=== PATIENT | male | born 1970 | race Caucasian/White ===

== ENCOUNTER 2017-06-03 13:41 | Emergency (ER) | payer BC ==
[2017-06-03 14:27] VITALS: BP 120/67
--- NOTE | 2017-06-03 14:34 | UC ---
Skin Complaint HPI - HPI Summary HPI Summary: Pt presents with c/o round, red rash on the back of left lower posterior leg that began 3 days ago. - History of Current Complaint Chief Complaint: UCSkin Time Seen by Provider: 06/03/17 14:13 Stated Complaint: LEFT LEG SKIN COMPLAINT Hx Obtained From: Patient Onset/Duration: Sudden Onset, Lasting Days Skin Exposure Onset/Duration: Days Ago Timing: Constant Onset Severity: Mild Current Severity: Mild Location: Discrete - left posterior calf Character: Redness Aggravating Factor(s): Nothing Alleviating Factor(s): Unknown Associated Signs & Symptoms: Positive: Rash - Allergy/Home Medications Allergies/Adverse Reactions: Allergies Allergy/AdvReac Type Severity Reaction Status Date / Time Rivaroxaban [From Xarelto] Allergy Severe Swelling Verified 06/03/17 14:05 Home Medications: Home Medications Aspirin EC Low Dose* [Ecotrin EC Low Dose 81 MG*] 1 tab BEDTIME 06/03/17 [ History Confirmed 06/03/17] Dorzolamide 2% OPTH (NF) [Trusopt 2% OPTH (NF)] 1 drop BOTH EYES BID 06/03/17 [ History Confirmed 06/03/17] Losartan TAB* [Cozaar TAB*] 25 mg PO DAILY 06/03/17 [History Confirmed 06/03/17] Review of Systems Constitutional: Negative Skin: Rash Eyes: Negative ENT: Negative Respiratory: Negative Cardiovascular: Negative Gastrointestinal: Negative Genitourinary: Negative Motor: Negative Neurovascular: Negative Musculoskeletal: Negative Neurological: Negative Psychological: Negative Is Patient Immunocompromised?: No All Other Systems Reviewed And Are Negative: Yes PMH/Surg Hx/FS Hx/Imm Hx Previously Healthy: Yes - charcot tooth pawel, left foot - Surgical History Surgical History: Yes Surgery Procedure, Year, and Place: MASTOIDECTOMY RT EAR X 2MIDDLE EAR LT X3 - Family History Known Family History: Positive: Cardiac Disease - Social History Occupation: Employed Full-time Lives: With Family Alcohol Use: Occasionally Substance Use Type: Excessive Caffeine Smoking Status (MU): Never Smoked Tobacco Have You Smoked in the Last Year: No - Immunization History Most Recent Influenza Vaccination: NOT YET 2016 Physical Exam Triage Information Reviewed: Yes Appearance: Well-Appearing Vital Signs: Initial Vital Signs Temp 97.5 F 06/03/17 14:12 Pulse 65 06/03/17 14:12 Resp 18 06/03/17 14:12 BP 120/67 06/03/17 14:12 Pulse Ox 96 06/03/17 14:12 Vital Signs Reviewed: Yes Eye Exam: Normal ENT Exam: Normal Neck exam: Normal Respiratory Exam: Normal Musculoskeletal Exam: Normal Neurological Exam: Normal Psychological Exam: Normal Skin Exam: Other - round, red rash, with flaky, dry skin in center. Course/Dx - Differential Diagnoses - Skin Complaint Differential Diagnoses: Allergic Reaction, Tinea - Diagnoses Provider Diagnoses: tinea, ringworm left lower extremity Discharge - Discharge Plan Condition: Stable Disposition: HOME Prescriptions: Terbinafine HCl (Topical) [Antifungal Foot] 1 % EX Q12H #1 tube Patient Education Materials: Skin Yeast Infection (ED) Referrals: Lonny Ward MD [Primary Care Provider] - If Needed
== END 2017-06-03 14:50 | disposition home or self-care (01) ==
LOC: UCCORT 13:41
DX: B35.4 Tinea corporis (principal)
CPT/HCPCS: 99212; G0463

== ENCOUNTER 2017-09-13 16:02 | Emergency (ER) | payer BC ==
--- OUTSIDE RECORDS SUMMARY | 2017-09-13 16:49 | XMS REPORT ---
:1970 External Reference #:[id number] Author Organization [employer] Address [address] [place] [address] Phone [phone] Care Team Providers Name Role Phone Lonny Ward MD Care Team Information Animal Trainer Unavailable Lonny Ward MD Primary Care Physician Unavailable Payers Type Date Identification Numbers Payment Provider Subscriber Commercial Policy Number: [id number] LAURENCE Anay Castro PayID: [id number] [address] [address] [place] [address] Problems Date Description Provider Status Onset: 11/28/2008 Type 2 diabetes mellitus Ethan Greco M.D. Active Family History Date Family Member(s) Problem(s) Comments General Diabetes Social History Type Date Description Comments Occupation Clergy Cigarette Use Never Smoked Cigarettes ETOH Use Drinks Alcoholic Beverages Rarely Recreational Drug Use Never Used Drugs Allergies, Adverse Reactions, Alerts Date Description Reaction Status Severity Comments 04/07/2017 Rivaroxaban EDEMA active 11/28/2008 NKDA inactive Medications Medication Date Status Form Strength Qnty SIG Indications Ordering Provider Fluticasone 03/13/ Active Suspension 50mcg/Act 3units 2 sprays Millicent Greco 2010 both helen Long M.D. every day 30 Days Aspirin 00/00/ Active Tablets 81mg Daily Unknown 0000 Insulin Pump / Active U500 Unknown 0000 Losartan 0000/ Active Tablets 25mg 1 by mouth Unknown Potassium 0000 every day Atorvastatin 00/00/ Active Tablets 20mg 1 by mouth Unknown Calcium 0000 every day Gabapentin 0000/ Active Capsules 300mg 1 by mouth Unknown 0000 three times a day Vitamin E / Active Capsules 400Unit everyday Unknown 0000 Multivitamin 00/ Active Tablets Adlt 50+ Daily Unknown Adults 50+ 0000 Vitamin B 00// Active Tablets Unknown Complex 0000 Tylenol Extra / Active Tablets 500mg 2 tabs bid Unknown Strength 0000 Lumigan / Active Unknown 0000 Tramadol HCL / Active Tablets 50mg Unknown 0000 Orfadin / Active Capsules Unknown 0000 Tumeric 00/ Active Daily Unknown 0000 Augmentin 08/12/ Hx Tablets 875-125mg 14tabs twice a Angus, 2016 - day 1 week Ethan, 08/25/ M.D. 2016 Ciprodex 04/07/ Hx Suspension 0.3-0.1% 15ml 3-4 gtts Angus, 2016 - bid in [facility], 08/11/ affected M.D. 2016 ear x 1 wk rebate: rxbin: [id number], rxpcn: loyalty, rxgrp: [id number], dish stacker: ([id number]), id# [id number] Amoxicillin 04/07/ Hx Tablets 875mg 20tabs 1 by mouth Angus, 2016 - twice a Ethan, 04/13/ day for 10 M.D. 2017 days Ciprodex 11/21/ Hx Suspension 0.3-0.1% 1bottl 5 drops Angus, 2015 - e twice a Ethan, 04/06/ day x 10 M.D. 2017 days left ear Cefdinir 10/16/ Hx Capsules 300mg 20caps 1 by mouth Angus, 2015 - twice a Ethan, 04/06/ day for 10 M.D. 2017 days Ciprodex 08/19/ Hx Suspension 0.3-0.1% 1units 3-4 gtts Angus, 2014 - bid in [facility], 10/07/ affected M.D. 2015 ear x 1 wk rebate: rxbin: [id number], rxpcn: loyalty, rxgrp: [id number], dish stacker: ([id number]), id# [id number] Augmentin 14/ Hx Tablets 875-125mg 20tabs 1 by mouth Angus, 2014 - twice a Ethan, 10/07/ day for 10 M.D. 2016 days Ciprodex 02/20/ Hx Suspension 0.3-0.1% 7.5ml 3-4 gtts Angus 2014 - bid in [facility], 08/06/ affected M.D. 2014 ear x 1 wk Amoxicillin 02/20/ Hx Tablets 875mg 14tabs bid 1 week Angus 2014 - [facility], 02/20/ M.D. 2014 Amoxicillin 02/20/ Hx Tablets 875mg 14tabs twice a Angus 2014 - day 1 week [facility], 08/06/ M.D. 2014 Prednisone 02/20/ Hx Tablets 10mg 2tabs 1 by mouth Angus 2014 - every [facility], 08/06/ morning M.D. 2014 Prednisone 05/16/ Hx Tablets 20mg 7tabs 1 po qd x Angus, 2011 - 7 days [facility], 10/21/ M.D. 2012 Nasonex 03/10/ Hx Suspension 50mcg/Act 17GMbo 2 sprays Angus, 2010 - ttl each [facility], 03/13/ nostril M.D. 2010 daily Ciprodex 02/18/ Hx Suspension 0.3-0.1% 7.5ml 3-4 gtts Angus 2010 - bid in [facility], 05/16/ affected M.D. 2011 ear x 1 wk Amoxicillin 12/31/ Hx Tablets 875mg 14tabs bid 1 week Angus 2010 - [facility], 02/18/ M.D. 2010 Ciprodex 02/13/ Hx Suspension 0.3-0.1% 1Bottl 2 drops in Angus, 2008 - e right ear [facility], 3 times a M.D. 2008 day for 5 days See Med List 00/00/ Hx Unknown 2008 Amaryl 00/ Hx Unknown 2008 Metformin / Hx 1000 mg Unknown - 08/06/ 500 mg at 2014 night Actos /00/ Hx Tablets 15mg Qday Unknown 2010 Lisinopril 00/ Hx Tablets 30mg Unknown 2011 Xalatan / Hx Solution 0.005% Unknown 2011 Fluticasone 00/ Hx Unknown 2008 Lantus / Hx 20 U qd Unknown 2008 Diovan HCT / Hx Tablets 320/25mg Unknown 2011 Sertraline 00/ Hx 75MGM Unknown - 2011 Humalog / Hx Solution 100Unit/ML Vis Unknown 0000 - Insulin 2012 Losartan 0000/ Hx Tablets 100-25mg Unknown Potassium/Hydr - ochlorothiazid 2012 Crestor 00/ Hx Tablets 10mg daily Unknown 2012 Timolol / Hx GFS Unknown Maleate - Ophthalmic Gel 2012 Lumigan / Hx Solution Unknown 2012 Actos / Hx 30mg 1 PO qd Unknown - 2014 Lisinopril / Hx Tablets 20mg 30tabs 1 by mouth Unknown 0000 - every day 2016 Vital Signs Date Vital Result Comment 08/26/2017 Weight 298.00 lb Height 72 inches 6'0" BMI (Body Mass Index) 40.4 kg/m2 Heart Rate 89 /min O2 % BldC Oximetry 90 % Body Temperature 97.1 F Pain Level 0 08/12/2017 Weight 298.00 lb Height 72 inches 6'0" BMI (Body Mass Index) 40.4 kg/m2 BP Systolic 136 mmHg BP Diastolic 77 mmHg Heart Rate 71 /min O2 % BldC Oximetry 96 % Body Temperature 97.7 F Pain Level 0 04/14/2017 Weight 301.00 lb Height 72 inches 6'0" BMI (Body Mass Index) 40.8 kg/m2 BP Systolic 109 mmHg BP Diastolic 74 mmHg Heart Rate 70 /min O2 % BldC Oximetry 94 % Body Temperature 98.7 F Pain Level 0 04/07/2017 Weight 300.00 lb Height 72 inches 6'0" BMI (Body Mass Index) 40.7 kg/m2 BP Systolic 126 mmHg BP Diastolic 86 mmHg Heart Rate 77 /min O2 % BldC Oximetry 94 % Body Temperature 98.7 F 11/22/2015 Weight 300.00 lb Height 72 inches 6'0" BMI (Body Mass Index) 40.7 kg/m2 Body Temperature 97.4 F 10/16/2015 Weight 306.00 lb Height 72 inches 6'0" BMI (Body Mass Index) 41.5 kg/m2 BP Systolic 124 mmHg BP Diastolic 84 mmHg Heart Rate 77 /min O2 % BldC Oximetry 96 % Body Temperature 96.7 F [place] Score 5 08/19/2015 Weight 301.00 lb Height 72 inches 6'0" BMI (Body Mass Index) 40.8 kg/m2 BP Systolic 132 mmHg BP Diastolic 80 mmHg Heart Rate 85 /min O2 % BldC Oximetry 96 % Body Temperature 96.3 F 02/20/2015 Weight 290.00 lb BP Systolic 150 mmHg BP Diastolic 98 mmHg Body Temperature 98.2 F 09/25/2014 Weight 291.00 lb Heart Rate 96 /min O2 % BldC Oximetry 97 % Body Temperature 97.0 F 12/12/2012 Weight 296.00 lb Height 72 inches 6'0" BMI (Body Mass Index) 40.1 kg/m2 BP Systolic 126 mmHg BP Diastolic 90 mmHg Body Temperature 97.7 F 10/21/2012 Weight 295.00 lb Height 72 inches 6'0" BMI (Body Mass Index) 40.0 kg/m2 BP Systolic 126 mmHg BP Diastolic 88 mmHg Heart Rate 80 /min O2 % BldC Oximetry 95 % Body Temperature 97.3 F 05/16/2012 Weight 295.00 lb Height 72 inches 6'0" BMI (Body Mass Index) 40.0 kg/m2 BP Systolic 124 mmHg BP Diastolic 84 mmHg Heart Rate 93 /min O2 % BldC Oximetry 95 % Body Temperature 98.4 F 03/10/2011 Weight 298.00 lb Height 72 inches 6'0" BMI (Body Mass Index) 40.4 kg/m2 BP Systolic 130 mmHg BP Diastolic 90 mmHg Heart Rate 81 /min O2 % BldC Oximetry 93 % Body Temperature 95.8 F 02/18/2011 Weight 293.00 lb Height 72 inches 6'0" BMI (Body Mass Index) 39.7 kg/m2 BP Systolic 138 mmHg BP Diastolic 82 mmHg Heart Rate 78 /min O2 % BldC Oximetry 96 % Body Temperature 96.4 F 12/31/2010 Weight 293.00 lb Height 72 inches 6'0" BMI (Body Mass Index) 39.7 kg/m2 BP Systolic 138 mmHg BP Diastolic 86 mmHg Heart Rate 87 /min O2 % BldC Oximetry 96 % Body Temperature 98.4 F neck 20 inch 11/20/2009 Weight 281.00 lb Height 72 inches 6'0" BMI (Body Mass Index) 38.1 kg/m2 BP Systolic 110 mmHg BP Diastolic 64 mmHg Heart Rate 77 /min O2 % BldC Oximetry 95 % Body Temperature 98.1 F 18.25 inch neck 04/19/2009 Weight 275.25 lb Height 72 inches 6'0" BMI (Body Mass Index) 37.3 kg/m2 BP Systolic 128 mmHg BP Diastolic 77 mmHg Heart Rate 85 /min O2 % BldC Oximetry 97 % 11/28/2008 Weight 263.00 lb Height 72 inches 6'0" BMI (Body Mass Index) 35.7 kg/m2 Body Temperature 98.1 F Results Test Date Test Result H/L Range Note Laboratory test finding 02/18/2011 Ear Culture See Note 1 1 Organism 1 ! NO PATHOGENS ISOLATED Procedures Date CPT Code Description Status 08/12/2017 28838 Debridement Mastoidectomy Cavity, Simple Completed 10/16/2015 99843 Tympanometry Completed 10/16/2015 66054 Tympanometry Completed 08/10/2009 86978 Sleep Stage 4 Or More Cpap Titra Completed 07/01/2009 09240 Sleep Staging 4Or More Para Completed 04/19/2009 92525 Fiberoptic Laryngoscopy,Diag. Completed 01/17/2009 06951 Acoustic Reflex Testing Completed 01/17/2009 19183 Tympanometry Completed 01/17/2009 81641 Audiometry, Comprehensive Completed Encounters Type Date Location Provider CPT E/M Dx Office Visit 08/12/2017 8:45a Main Office Ethan Greco M.D. 59410 H70.891 H66.92 Office Visit 04/14/2017 8:30a [place] [address] H60.92 H65.02 Office Visit 04/07/2017 1:30p [place] [address] H60.92 Office Visit 11/22/2015 8:00a Main Office Ethan Greco M.D. 07890 H70.891 H60.92 G47.33 E66.9 Office Visit 10/16/2015 8:30a [place] [address] H65.22 Office Visit 08/19/2015 8:30a [place] [address] H65.22 H61.21 Office Visit 02/20/2015 5:15p Main Office Ethan Greco M.D. 06695 383.89 381.81 327.23 382.9 380.10 Office Visit 09/25/2014 8:00a Main Office Vinita Valadez [place], [place] [address] 327.23 381.81 383.89 Office Visit 12/12/2012 8:30a [place] [address] 381.81 327.23 Office Visit 10/21/2012 8:15a [place] [address] 381.81 Office Visit 05/16/2012 9:00a [place] [address] 381.81 Office Visit 03/10/2011 8:15a [place] [address] 381.10 Office Visit 02/18/2011 9:00a [place] [address] 381.10 Office Visit 12/31/2010 11:15a Main Office Mihaela [place], [place] [address] 327.23 381.10 Office Visit 11/20/2009 11:15a [place] [address] 327.23 Office Visit 07/22/2009 2:00p Main Office Ethan Greco M.D. 30614 327.23 780.53 470 Office Visit 05/20/2009 8:30a Main Office Ethan Greco M.D. 47149 383.89 780.53 327.23 470 Office Visit 04/19/2009 11:15a Main Office Ethan Greco M.D. 95408 780.53 327.23 470 383.89 389.03 Office Visit 02/13/2009 2:45p Main Office Ethan Greco M.D. 59352 383.89 389.03 Office Visit 11/28/2008 2:30p Main Office Ethan Greco M.D. 95039 383.89 389.03 Plan of Care No Information Available
[2017-09-13 16:58] VITALS: BP 120/75
--- NOTE | 2017-09-13 16:59 | UC ---
Respiratory Complaint HPI - History of Current Complaint Chief Complaint: UCGeneralIllness Stated Complaint: UPPER RESPIRATORY COMPLAINT Time Seen by Provider: 09/13/17 16:59 - Allergies/Home Medications Allergies/Adverse Reactions: Allergies Allergy/AdvReac Type Severity Reaction Status Date / Time Rivaroxaban [From Xarelto] Allergy Severe Swelling Verified 09/13/17 16:58 Latex Allergy Rash Verified 09/13/17 16:58 PMH/Surg Hx/FS Hx/Imm Hx - Surgical History Surgical History: Yes Surgery Procedure, Year, and Place: MASTOIDECTOMY RT EAR X 2 MIDDLE EAR LT X3 - Family History Known Family History: Positive: Cardiac Disease - Social History Alcohol Use: Rare Substance Use Type: Excessive Caffeine Smoking Status (MU): Never Smoked Tobacco Have You Smoked in the Last Year: No - Immunization History Most Recent Influenza Vaccination: FALL 2016 Physical Exam Vital Signs: Initial Vital Signs Temp 36.4 C 09/13/17 16:49 Pulse 80 09/13/17 16:49 Resp 16 09/13/17 16:49 BP 120/75 09/13/17 16:49 Pulse Ox 96 09/13/17 16:49 UC Diagnostic Evaluation - Laboratory O2 Sat by Pulse Oximetry: 96 Discharge - Discharge Plan Condition: Stable Disposition: HOME Referrals: Lonny Ward MD [Primary Care Provider] -
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
== END 2017-09-13 17:52 | disposition home or self-care (01) ==
LOC: UCCORT 16:02
DX: H66.93 Otitis media, unspecified, bilateral (principal); J01.90 Acute sinusitis, unspecified; E11.9 Type 2 diabetes mellitus without complications; E78.5 Hyperlipidemia, unspecified; I10 Essential (primary) hypertension
CPT/HCPCS: 99212; G0463

== ENCOUNTER 2019-10-26 16:39 | Emergency (ER) | payer BC ==
--- OUTSIDE RECORDS SUMMARY | 2019-10-26 18:16 | XMS REPORT | Summary of Care ---
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 without macular edema, with long-term current use of insulin; [address] NETO on CPAP; [place], [place] Diabetic nephropathy associated with type 2 diabetes mellitus; [place] [address] Essential hypertension; [id number] Mixed hyperlipidemia; [phone] Insulin long-term use; (Fax) Insulin pump status; Morbid obesity with BMI of 40.0-44.9, adult; Charcot's joint of foot in type 2 diabetes mellitus; Low testosterone; Vitamin D deficiency; Type 2 diabetes mellitus with peripheral neuropathy Allergies Active Allergy Reactions Severity Noted Date Comments Latex Other (See Comments) 07/11/2015 Possible reaction: had rash and infection following blood donation, took a week to resolve. Has donated before with out incident. Rivaroxaban Rash, Other (See High 10/13/2013 Severe edema Comments) documented as of this encounter (statuses as of 10/25/2019) Medications Medication Sig Dispensed Refills Start Date End Date Status citalopram Take 30 mg by 0 08/14/2013 Active (CELEXA) 20 MG mouth daily tablet gabapentin Take 300 mg by 0 05/16/2015 Active (NEURONTIN) 300 MG mouth Three times capsule daily. atenolol Take 50 mg by 0 Active (TENORMIN) 50 MG mouth daily. tablet fluticasone 2 sprays each 0 Active (FLONASE) 50 nostril once MCG/ACT nasal daily. spray acetaminophen Take 1,000 mg by 0 Active (TYLENOL) 500 MG mouth daily as tablet needed for Pain Insulin Use as directed. 10 each 10/21/2015 Active Syringe-Needle Up to 5 times U-100 (INSULIN daily in case of SYRINGE pump failure. .5CC/31GX5/16") DXE11.65 31G X 5/16" 0.5 ML MISC atorvastatin Take 20 mg by 0 Active (LIPITOR) 20 MG mouth daily. tablet vitamin E 400 UNIT Take 400 Units by 0 Active capsule mouth daily tramadol (ULTRAM) Take by mouth 0 01/07/2016 Active 50 MG tablet nightly Per pt- once a day at night losartan (COZAAR) Take 100 mg by 0 Active 100 MG tablet mouth daily. calcium carbonate Chew 1 tablet by 0 Active (TUMS EX) 750 MG Mouth daily as chewable tablet needed acetone, urine, Use as directed up 25 each 12/08/2016 Active test strip to 10 x daily for hyperglycemia or illness. terbinafine Apply topically 0 Active (LAMISIL) 1 % Two times daily as cream needed to spots on legs. SUPER B COMPLEX/C Take 1 capsule by 0 Active CAPS mouth daily stopped orphenadrine Take 50 mg by 0 Active (NORFLEX) 100 MG mouth nightly tablet Multiple Take 1 tablet by 0 Active Vitamins-Minerals mouth daily (CENTRUM SILVER ADULT 50+) TABS glucagon (GLUCAGON Use as directed 1 each 10/05/2017 Active EMERGENCY) 1 MG for hypoglycemia injection Insulin Infusion Use as directed. 0 Active Pump Supplies (MINIMED PUMP RESERVOIR 3ML) MISC Blood Glucose by Does not apply 0 Active Monitoring Suppl route (CONTOUR NEXT LINK) w/Device KIT CONTOUR NEXT TEST 0 08/02/2018 Active test strip dorzolamide-timolo Place 1 drop into 10 mL 12/29/2018 Active l (COSOPT) both eyes Two 22.3-6.8 MG/ML Times Daily ophthalmic solution insulin glargine Inject 85 Units 30 mL 2 03/23/2019 Active (LANTUS SOLOSTAR) into the skin 100 UNIT/ML pen daily In case of pump failure only. MDD: 107 units. Insulin Pen Needle Use as directed. 100 each 1 03/23/2019 Active (B-D ULTRAFINE III With Lantus in SHORT PEN) 31G X 8 case of pump MM MISC failure. insulin U-500 Use as directed in 80 mL 1 06/05/2019 Active (HUMULIN R) 500 insulin pump. UNIT/ML Maximum daily dose concentrated 300 units. E11.65 injectionIndicatio Discard vial after ns: Type 2 28 days. diabetes mellitus with hyperglycemia, with long-term current use of insulin Ostomy Supplies 1 each by Does not 50 each 3 06/21/2019 Active (SKIN TAC ADHESIVE apply route every BARRIER WIPE) other day For MISCIndications: insulin pump Type 2 diabetes infusion site mellitus with changes, dx E11.65 hyperglycemia, with long-term current use of insulin Transparent Use as directed. 50 each 3 06/21/2019 Active Dressings Every other day (TEGADERM FIRST with insulin pump AID STYLE) infusion site MISCIndications: changes, dx E11.65 Type 2 diabetes mellitus with hyperglycemia, with long-term current use of insulin Vitamin D take 1 capsule by 8 capsule 5 10/18/2019 Active (Ergocalciferol) mouth TWO TIMES 1.25 MG (66671 UT) PER WEEK Oral Capsule (ERGOCALCIFEROL) [place] 0.01 % 0 09/15/2019 Active Ophthalmic Solution Glucagon 3 MG/DOSE [place] 3mg in one 1 each 3 10/25/2019 Active Nasal Powder nostril to treat (BAQSIMI ONE severe PACK)Indications: hypoglycemia. Dx Type 2 diabetes E11.65 . mellitus with hyperglycemia, with long-term current use of insulin AFLURIA ADM 0.5ML IM UTD 0 07/01/2018 10/25/19 Discontinued QUADRIVALENT 20 injection 6 months and older AMOXICILLIN PO Take by mouth 0 10/25/19 Discontinued 20 documented as of this encounter (statuses as of 10/25/2019) Active Problems Problem Noted Date Family dysfunction 06/06/2019 Developmental venous anomaly 12/09/2017 Subdural hematoma 11/16/2017 Other headache syndrome 10/22/2017 Syncope 08/24/2017 Traumatic subdural hematoma with loss of consciousness of 30 minutes or 2016 less Type 2 diabetes mellitus with hyperglycemia, with long-term current use of 09/2015 insulin Morbid obesity with BMI of 40.0-44.9, adult 08/06/2016 Charcot's joint of foot in type 2 diabetes mellitus 08/06/2016 Low testosterone 08/06/2016 Vitamin D deficiency 08/06/2016 Type 2 diabetes mellitus with mild nonproliferative retinopathy without 2015 macular edema, with long-term current use of insulin Peripheral neuropathy 09/06/2015 Insulin pump status 07/19/2015 Polycythemia, secondary 07/25/2013 Erythrocytosis due to alveolar hypoventilation 07/11/2013 Pulmonary embolus 07/11/2013 Erythrocytosis 07/11/2013 Pulmonary embolism 06/20/2013 Overview: bilatreral Mixed hyperlipidemia 11/15/2012 Glaucoma associated with chamber angle anomaly, bilateral, severe stage 1995 Diabetic nephropathy associated with type 2 diabetes mellitus Type 2 diabetes mellitus with peripheral neuropathy Essential hypertension NETO on CPAP Congenital single kidney Overview: left never developed Insulin long-term use Last Assessment & Plan: Insulin Pump Record (Advanced) Rafal Castro 10/25/2019 Insulin Type: U500 Insulin Pump Model: MiniMed 722 Infusion Set: silohette Time of Day: Carbohydrate to Insulin Ratio Sensitivity Factor Blood Glucose Target Active Insulin If blood glucose is below target goal then, subtract 1 unit(s) of insulin, required for a meal or snack #1 12 am 12 30 100-120 8 hours #2 6am 10 #3 4:30pm 10 #4 9pm 12 #5 #6 U500 insulin in pump Basal Insulin U500 Basal Rate Starting Time Basal #1 0.75 unit/hr 12mn Basal #2 0.8 unit/hr 8 am documented as of this encounter (statuses as of 10/25/2019) Resolved Problems Problem Noted Date Resolved Date Cerebral AV malformation 10/22/2017 12/09/2017 Type 2 diabetes mellitus with diabetic nephropathy, with 08/06/20162017 long-term current use of insulin Type 2 diabetes mellitus with peripheral neuropathy 08/06/2016 Overview: insulin resistance Last Assessment & Plan: Insulin Pump Record (Advanced) Rafal Castro 03/06/2015- Insulin Type: Humalog Insulin Pump Model: MiniMed 722 Infusion Set: silohette Time of Day: Carbohydrate to Insulin Ratio Sensitivity Factor Blood Glucose Target Active Insulin If blood glucose is below target goal then, subtract 1 unit(s) of insulin, required for a meal or snack #1 Breakfast 4:1 10 100-120 3 hours #2 Mid- Morning snack 4:1 #3 Lunch 4:1 #4 Afternoon snack 4:1 #5 Supper 3:1 #6 Evening snack 6:1 9 pm Basal Insulin Basal Rate Starting Time Basal Rate Starting Time Basal #1 3.5 unit/hr 12mn Basal #6 unit/hr Basal #2 4.5 unit/hr 8 am Basal #7 unit/hr Basal #3 unit/hr Basal #8 unit/hr Basal #4 unit/hr Basal #9 unit/hr Basal #5 unit/hr Basal #10 unit/hr documented as of this encounter (statuses as of 10/25/2019) Immunizations Name Administration Dates Next Due Influenza Whole 06/27/2015 documented as of this encounter Social History Tobacco Use Types Packs/Day Years Used Date Never Smoker Smokeless Tobacco: Never Used Alcohol Use Drinks/Week oz/Week Comments Yes 3-4 week Sex Assigned at Date Recorded Not on file Job Start Date Occupation Industry Not on file Not on file Not on file Travel History Travel Start Travel End No recent travel history available. documented as of this encounter Last Filed Vital Signs Vital Sign Reading Time Taken Comments Blood Pressure 116/70 10/25/2019 10:29 AM EST Pulse 80 10/25/2019 10:29 AM EST Temperature - - Respiratory Rate 18 10/25/2019 10:29 AM EST Oxygen Saturation - - Inhaled Oxygen Concentration - - Weight 140.9 kg (310 lb 10.1 oz) 10/25/2019 10:29 AM EST Height 182.9 cm (6') 10/25/2019 10:29 AM EST Body Mass Index 42.13 10/25/2019 10:29 AM EST documented in this encounter Patient Instructions Patient InstructionsKiesha Ruiz MD - 10/25/2019 10:20 AM EST Insulin long-term use Insulin Pump Record (Advanced) Rafal Castro 10/25/2019 Insulin Type: U500 Insulin Pump Model: MiniMed 722 Infusion Set: silohette Time of Day: Carbohydrate to Insulin Ratio Sensitivity Factor Blood Glucose Target Active Insulin If blood glucose is below target goal then, subtract 1 unit(s) of insulin, required for a meal or snack #1 12 am 12 30 100-120 8 hours #2 6am 10 #3 4:30pm 10 #4 9pm 12 #5 #6 U500 insulin in pump Basal Insulin U500 Basal Rate Starting Time Basal #1 0.75 unit/hr 12mn Basal #2 0.8 unit/hr 8 am documented in this encounter Progress Notes Kiesha Ruiz MD - 10/25/2019 10:20 AM EST Rafal Castro is a 49 y.o. male here for follow up of diabetes type 2. He was last seen by me in01/2018 and has since been following with our PA and nutrition. He was diagnosed with DM-2 in 1995. He started a pump in 2009 He is currently using a [employer]. He uses U 500 in his pump Basal: Mn 0.7 8 AM 0.75 [place] :1:15 6 AM 1:12 4:30 PM 1:12 9 PM 1:15 ISF 1:33 Target 100-120 Active insulin time 8 hours Per patient, his pump recently went out of warranty, and he is working with the [employer] to get a newpump. He notes his has been cooking carb- heavy meals since he started working 2 jobs. Patient has neuropathy and is on gabapentin. He is s/p toe amputation in 10/2018 and has healed well.He is followed by podiatry. He has hyperlipidemia. He is on statin He has hypertension. He is on ARB and atenolol. He has low testosterone. He is not on testosterone supplementation- he was on this past. He has history of PE- he is off coumadin He has NETO. He is on CPAP. He has vitamin D deficiency. He is on 50,000 IU twice weekly. Microvascular complications: + Neuropathy with charcot foot and nephropathy, + retinopathy Macrovascular complications: No h/o PR, CVA, PVD DIABETES RELATED ROS: 1. Blood sugar checks x 3-4/day 2. Symptoms of hypoglycemia: 0-1 times/wk Loss of consiousness: no Seizure: no 3. Threshold: 60 4. Neuropathic symptoms (paresthesiae/numbness/pain): yes 5. Last eye exam:01/2018 6. Foot Ulceration: no 7. Macrovascular disease symptoms: angina: no intermittent claudication: no TIA: no 8. Liquified Natural Gas Technician: Dr. Mathew - every 2 months 9. Steam Hammer Operator: 10. Director Industrial: HOME BLOOD GLUCOSE RECORD Reviewed. Frequent hyperglycemia. Past Medical History: Diagnosis Date Charcot foot due to diabetes mellitus Chronic otitis media 1974, 1979 Congenital single kidney left never developed Depression Diabetes mellitus type II 1993 insulin resistance Diabetic neuropathy Erythrocytosis due to alveolar hypoventilation Glaucoma 1995 DX MD in [place] Hearing loss HTN (hypertension) Insulin pump status 07/19/2015 Low testosterone Mastoiditis 1999, 2005 Mixed hyperlipidemia 11/15/2012 Morbid obesity with BMI of 40.0-44.9, adult 08/06/2016 Nephropathy NETO on CPAP Polycythemia secondary Pulmonary embolism 06/20/13 bilatreral Type 2 diabetes mellitus with diabetic nephropathy, with long-term current use of insulin 08/06/2016 Type 2 diabetes mellitus with mild nonproliferative retinopathy without macular edema, with long-term current use of insulin 08/06/2016 Vitamin D deficiency 08/06/2016 Past Surgical History: Procedure Laterality Date INNER EAR SURGERY 4 on right ear MASTOIDECTOMY TONSILLECTOMY childhood Family History Problem Relation Age of Onset Diabetes Mother Obesity Mother Depression Father Hypertension Father Heart disease Sister whole in the heart and arrythmia Seizures Sister after MVA Diabetes Maternal Grandmother Hypertension Maternal Grandmother Obesity Maternal Grandmother Heart disease Maternal Grandfather Hypertension Paternal Grandmother Kidney disease Paternal Grandmother Obesity Paternal Grandmother Hypertension Paternal Grandfather Kidney disease Paternal Grandfather Obesity Paternal Grandfather Glaucoma Maternal Aunt SOCIAL HISTORY: - remarried Social History Tobacco Use Smoking status: Never Smoker Smokeless tobacco: Never Used Substance Use Topics Alcohol use: Yes Comment: 3-4 week Drug use: No Allergies Allergen Reactions Xarelto [Rivaroxaban] Rash and Other (See Comments) Severe edema Latex Other (See Comments) Possible reaction: had rash and infection following blood donation, took a week to resolve. Has donated before with out incident. Current Outpatient Medications Medication Sig Dispense Refill acetaminophen (TYLENOL) 500 MG tablet Take 1,000 mg by mouth daily as needed for Pain acetone, urine, test strip Use as directed up to 10 x daily for hyperglycemia or illness. 25 each 5 atenolol (TENORMIN) 50 MG tablet Take 50 mg by mouth daily. atorvastatin (LIPITOR) 20 MG tablet Take 20 mg by mouth daily. Blood Glucose Monitoring Suppl (CONTOUR NEXT LINK) w/Device KIT by Does not apply route calcium carbonate (TUMS EX) 750 MG chewable tablet Chew 1 tablet by Mouth daily as needed citalopram (CELEXA) 20 MG tablet Take 30 mg by mouth daily CONTOUR NEXT TEST test strip dorzolamide-timolol (COSOPT) 22.3-6.8 MG/ML ophthalmic solution Place 1 drop into both eyes Two Times Daily 10 mL 11 fluticasone (FLONASE) 50 MCG/ACT nasal spray 2 sprays each nostril once daily. gabapentin (NEURONTIN) 300 MG capsule Take 300 mg by mouth Three times daily. glucagon (GLUCAGON EMERGENCY) 1 MG injection Use as directed for hypoglycemia 1 each 12 insulin glargine (LANTUS SOLOSTAR) 100 UNIT/ML pen Inject 85 Units into the skin daily In case of pump failure only. MDD: 107 units. 30 mL 2 Insulin Infusion Pump Supplies (MINIMED PUMP RESERVOIR 3ML) MISC Use as directed. Insulin Pen Needle (B-D ULTRAFINE III SHORT PEN) 31G X 8 MM MISC Use as directed. With Lantusin case of pump failure. 100 each 1 Insulin Syringe-Needle U-100 (INSULIN SYRINGE .5CC/31GX5/16") 31G X 5/16 " 0.5 ML MISC Use as directed. Up to 5 times daily in case of pump failure. DXE11.65 10 each 5 insulin U-500 (HUMULIN R) 500 UNIT/ML concentrated injection Use as directed in insulin pump. Maximum daily dose 300 units. E11.65 Discard vial after 28 days. 80 mL 1 losartan (COZAAR) 100 MG tablet Take 100 mg by mouth daily. Lumigan 0.01 % Ophthalmic Solution Multiple Vitamins-Minerals (CENTRUM SILVER ADULT 50+) TABS Take 1 tablet by mouth daily orphenadrine (NORFLEX) 100 MG tablet Take 50 mg by mouth nightly Ostomy Supplies (SKIN TAC ADHESIVE BARRIER WIPE) MISC 1 each by Does not apply route every other day For insulin pump infusion site changes, dx E11.65 50 each 3 SUPER B COMPLEX/C CAPS Take 1 capsule by mouth daily stopped terbinafine (LAMISIL) 1 % cream Apply topically Two times daily as needed to spots on legs. tramadol (ULTRAM) 50 MG tablet Take by mouth nightly Per pt- once a day at night Transparent Dressings (TEGADERM FIRST AID STYLE) MISC Use as directed. Every other day with insulin pump infusion site changes, dx E11.65 50 each 3 Vitamin D (Ergocalciferol) 1.25 MG (93284 UT) Oral Capsule ( ERGOCALCIFEROL) take 1 capsule bymouth TWO TIMES PER WEEK 8 capsule 5 vitamin E 400 UNIT capsule Take 400 Units by mouth daily Glucagon 3 MG/DOSE Nasal Powder (BAQSIMI ONE PACK) [place] 3mg in one nostril to treat severe hypoglycemia. Dx E11.65 . 1 each 3 No current facility-administered medications for this visit. ROS: No fevers, chills, nausea, vomiting, chest pain or shortness of breath The full 10-point review of systems is otherwise negative except as noted in HPI. PHYSICAL EXAM: Vitals: 10/25/19 1029 BP: 116/70 BP Location: Right arm Patient Position: Sitting Cuff size: Adult Large Pulse: 80 Resp: 18 Weight: (!) 140.9 kg (310 lb 10.1 oz) Height: 1.829 m (6') Body mass index is 42.13 kg/m. Wt Readings from Last 3 Encounters: 10/25/19 (!) 140.9 kg (310 lb 10.1 oz) 06/05/19 (!) 138.5 kg (305 lb 6.4 oz) 03/03/19 (!) 137 kg (302 lb) BP Readings from Last 3 Encounters: 10/25/19 116/70 06/05/19 118/70 03/03/19 140/82 GENERAL: Awake, alert and in no apparent distress, obese EYES: conjunctivae are pink and moist, no exophthalmos, lag or stare ENT/MOUTH: dentition: good, tongue normal THYROID: thyroid is normal, no nodules, non-tender LYMPHATIC: no cervical or supraclavicular adenopathy CARDIOVASCULAR: regular rate and rhythm, no murmur RESPIRATORY: full breath sounds bilaterally with normal expansion GASTROINTESTINAL: soft, non-tender, normal bowel sounds MUSCULOSKELETAL: normal muscle mass, normal gait SKIN: no breakdown, nails ok, injection sites ok NEUROLOGIC: DTRs normal with normal recovery phase, PERRL, EOMI, no tremor of the outstretched hands PSYCHIATRIC: mood and affect are normal Diabetic foot exam by podiatry OUTSIDE RECORDS: reviewed. Pertinent positives summarized in HPI LABS: Lab Results Component Value Date HGBA1C 10.5 (H) 10/25/2019 HGBA1C 10.6 (H) 06/05/2019 HGBA1C 10.1 (H) 03/03/2019 Lab Results Component Value Date CHO 118 10/05/2017 TRIG 103 10/05/2017 HDL 37 (L) 10/05/2017 LDL 60 10/05/2017 VLDL 21 10/05/2017 Lab Results Component Value Date CREATININE 1.0 2019 No components found for: EGFR Lab Results Component Value Date MICROALBCR 57.4 (H) 12/08/2016 Lab Results Component Value Date AST 31 10/05/2017 Lab Results Component Value Date ALT 58 (H) 10/05/2017 Lab Results Component Value Date TSH 1.430 10/05/2017 Lab Results Component Value Date FREET4 1.16 12/08/2016 Lab Results Component Value Date [id number] 18 (L) 10/05/201702/2019 Na 137 K 4.9 Creatinine 1.0 Ca 8.9 Urine protein 2+ MC ratio 207.1 A/P: This is a 49 y.o. male with a history of DM-2 here for follow up 1. DM2: uncontrolled - increase basal rate as below - Advised that he needs to check glucose more frequently and correct glucose when elevated. - advised to change injection site every 2-3 days - advised to check glucose 4-6 times daily - advised to have dilated eye exam at least once yearly - will check routine labs 2. Neuropathy: follows with podiatry - on gabapentin - no changes at this time - history of charcot foot 3. Nephropathy: On ARB - no change at this time 4. Retinopathy: up to date on eye exam 5. Hypertension: BP at goal - on ARB and atenolol - MC<30 6. Hyperlipidemia: on statin - no change at this time 7. Insulin pump status: - no mechanical issue at this time 8. Low testostesrone: no treatment due to history of PE 9. NETO: on CPAP 10. Vitamin D deficiency: on 50,000 IU twice weekly - goal >30 11. Pulmonary embolus: in the past 12. Obesity: working on weight loss RTC 3 months Diabetes Self-Management Education/Training (DSME/T) Per [facility] policy AMB J-19, the Pearl RN corner bead operator CDE may provide my patient with insulin adjustmentsand all diabetes management guidelines per approved policies AMB J-01 through AMB J-18. My patient may receive diabetes self- management education for any nursing, nutrition, or physical therapy needs which arise and require the expertise of a [facility] educator. Insulin long-term use Insulin Pump Record (Advanced) Rafal Castro 10/25/2019 Insulin Type: U500 Insulin Pump Model: MiniMed 722 Infusion Set: silohette Time of Day: Carbohydrate to Insulin Ratio Sensitivity Factor Blood Glucose Target Active Insulin If blood glucose is below target goal then, subtract 1 unit(s) of insulin, required for a meal or snack #1 12 am 12 30 100-120 8 hours #2 6am 10 #3 4:30pm 10 #4 9pm 12 #5 #6 U500 insulin in pump Basal Insulin U500 Basal Rate Starting Time Basal #1 0.75 unit/hr 12mn Basal #2 0.8 unit/hr 8 am Orders Placed This Encounter TSH Lipid panel LDL cholesterol, direct Denisa D 25 Hydroxy Total Glucagon 3 MG/DOSE Nasal Powder (BAQSIMI ONE PACK) Dr. Ruiz obtained and performed the history, physical exam and assessment and plan elements thatwere entered into the chart by me. Scribed by Lyric Cruz for Kiesha Ruiz M.D. on 10/25/19 at 10:59 AM. I attest that the person noted, acting as my scribe, has observed my performance of the services andhas documented them in accordance with my direction, I have personally reviewed the above information, edited as necessary and it accurately refects the work and decisions made by me, I have ordered the diagnostic studies, unless otherwise noted. Kiesha Ruiz M.D. Kiesha Ruiz MD lift electrician Endocrinology, Diabetes and Metabolism documented in this encounter Plan of Treatment Date Type Specialty Care Team Description 01/24/2020 Office Visit Endocrinology Denisse Dahl PA [address] [place] [address] [phone] 05/14/2020 Office Visit Endocrinology Denisse Dahl PA [address], [place] [id number] 08/14/2020 Office Visit Endocrinology Kiesha Ruiz MD [address] [place], [place] [id number] Name Type Priority Associated Diagnoses Order Schedule POCT urinalysis, Point of Care Routine Type 2 diabetes 5 Occurrences docked Testing-Docked mellitus with starting 10/25/2019 Device hyperglycemia, with until 10/25/2020 long-term current use of insulin TSH Lab Routine Type 2 diabetes 1 Occurrences mellitus with starting 10/25/2019 hyperglycemia, with until 04/24/2020 long-term current use of insulin Lipid panel Lab Routine Type 2 diabetes 1 Occurrences mellitus with starting 10/25/2019 hyperglycemia, with until 04/24/2020 long-term current use of insulin LDL cholesterol, Lab Routine Type 2 diabetes 1 Occurrences direct mellitus with starting 10/25/2019 hyperglycemia, with until 04/24/2020 long-term current use of insulin Denisa D 25 Hydroxy Lab Routine Vitamin D deficiency 1 Occurrences Total starting 10/25/2019 until 04/24/2020 Health Maintenance Due Date Last Done Comments MMR Vaccines (1 of 1 - 1970 Standard series) Varicella Vaccines (1 of 2 1970 - 2-dose childhood series) Pneumococcal Vaccine: 1975 Pediatrics (0 to 5 Years) and At-Risk Patients (6 to 64 Years) (1 of 1 - PPSV23) DTaP,Tdap,and Td Vaccines 1976 (1 - Tdap) HIV Screening 1982 Diabetic Foot Exam 1987 Hepatitis B Vaccines (1 of 1988 3 - Risk 3-dose series) Urine Microalbumin 12/08/2017 12/08/2016, 10/21/2015, 03/06/2015, Additional history exists Lipid Disorder Screening 10/05/2018 10/05/2017, 12/08/2016, 10/21/2015, Additional history exists Colon Cancer Screening 10 2019 yrs Influenza Vaccine 06/06/2019 06/27/2015 Hemoglobin A1c 12/04/2019 06/05/2019, 03/03/2019, 08/18/2018, Additional history exists Dilated Retinal Exam 12/30/2019 12/29/2018 Pneumococcal Vaccine: 65+ 2034 Years (1 of 2 - PCV13) HIB Vaccines Aged Out No longer eligible based on patient's age to complete this topic Hepatitis A Vaccines Aged Out No longer eligible based on patient's age to complete this topic IPV Vaccines Aged Out No longer eligible based on patient's age to complete this topic documented as of this encounter Goals Goal Patient Goal Associated Recent Patient-Stated? Author Type Problems Progress Blood Pressure < Blood Pressure 116/70 No Rey, 130/80 (10/25/2019 CLAUS Duran 10:29 AM EST) HEMOGLOBIN A1C < Result 10.5 No Rey, 7.0 Component (10/25/2019 CLAUS Duran 10:23 AM EST) LDL CALC,LDL Result 60 No Rey, CHOLESTEROL,LDLC Component (10/05/2017 CLAUS Duran HOLESTEROL,LDL 11:33 AM EST) DIRECT,LDLCHOLES TEROL,DIRECT < 100 documented as of this encounter Implants Implanted Type Area Shirt Trimmer Device Shelf Model / Identifier Expiration Date Serial / Lot Vas Demi - Mynx Marilee-[id number] - [id number] Right: NO MANUFACTURE 09/05/2019 [id number] / Implanted: Qty: 1 on 11/16/2017 [facility] [id number] documented as of this encounter Procedures Procedure Name Priority Date/Time Associated Comments Diagnosis POCT URINALYSIS Routine 10/25/2019 10:44 AM Results for this EST procedure are in the results section. POCT GLUCOSE, DOCKED Routine 10/25/2019 10:31 AM Results for this EST procedure are in the results section. POCT HEMOGLOBIN A1C, Routine 10/25/2019 10:23 AM Results for this DOCKED EST procedure are in the results section. documented in this encounter Results POCT urinalysis, docked (10/25/2019 10:44 AM EST) POC Urine Color Yellow [place] [facility] POC Urine Clarity Clear [place] [facility] POC Urine Glucose =>1000 (A) Negative mg/dL [place] [facility] POC Urine Bilirubin Negative Negative [place] [facility] POC Urine Ketones Negative Negative mg/dL [place] [facility] POC Urine Specific 1.025 1.005 - 1.025 [place] [facility] [place] POC Urine Blood Small (A) Negative [facility] [facility] POC Urine pH 5.0 5.0 - 8.0 [place] [facility] POC Urine Protein 100 (A) Negative mg/dL [place] [facility] POC Urine Urobilinogen 0.2 0.2 - 1.0 [place] [facility] {Ehrlich_U}/dL POC Urine Nitrite Negative Negative [place] [facility] POC Urine Leukocyte Negative Negative [place] [facility] Esterase Specimen Urine Performing Organization Address [facility] [place] POINT OF CARE TEST [address] [place] [phone] [facility] [facility] [address] [place] [phone] POCT glucose, docked (10/25/2019 10:31 AM EST) POC Glucose 288 (H) 70 - 140 mg/dL [place] [facility] Specimen Whole Blood Performing Organization Address [facility] [place] Number POINT OF CARE TEST [address] [place] [phone] [facility] [facility] [address] [place] [phone] POCT Hemoglobin A1C, Docked (10/25/2019 10:23 AM EST) Hemoglobin A1C 10.5 (H) 4.0 - 6.0 % [place] [facility] Estimated Avg Glucose 255 (H) <126 mg/dL [facility] Specimen Whole Blood Performing Organization Address [facility] [place] Number POINT OF CARE TEST [address] [place] [phone] [place] [facility] [address] [place] [phone] documented in this encounter Visit Diagnoses Diagnosis Type 2 diabetes mellitus with hyperglycemia, with long-term current use of insulin - Primary Type 2 diabetes mellitus with both eyes affected by mild nonproliferative retinopathy without macular edema, with long-term current use of insulin NETO on CPAP Obstructive sleep apnea (adult) (pediatric) Diabetic nephropathy associated with type 2 diabetes mellitus Essential hypertension Unspecified essential hypertension Mixed hyperlipidemia Insulin long-term use Encounter for long-term (current) use of insulin Insulin pump status Morbid obesity with BMI of 40.0-44.9, adult Morbid obesity Charcot's joint of foot in type 2 diabetes mellitus Type II or unspecified type diabetes mellitus with neurological manifestations , not stated as uncontrolled Low testosterone Other testicular hypofunction Vitamin D deficiency Unspecified vitamin D deficiency Type 2 diabetes mellitus with peripheral neuropathy documented in this encounter
[2019-10-26 18:28] VITALS: BP 132/63
[2019-10-26 19:16] LABS: Influenza A Molecular Negative (Negative); Influenza B Molecular Negative (Negative)
--- NOTE | 2019-10-26 19:31 | UC ---
Respiratory Complaint HPI - HPI Summary HPI Summary: Pt presents with 1 week head cold settled in chest. continues with cough, wheeze. now with green phlegm. - fevers, fatigue, sinus pain + PND nausea, decreased appetitis. 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 reviewed this visit - History of Current Complaint Chief Complaint: UCRespiratory Stated Complaint: UPPER RESP CONCERN Time Seen by Provider: 10/26/19 18:34 Hx Obtained From: Patient Onset/Duration: Gradual Onset Severity Initially: Mild Severity Currently: Mild Pain Intensity: 0 - Allergies/Home Medications Allergies/Adverse Reactions: Allergies Allergy/AdvReac Type Severity Reaction Status Date / Time latex Allergy Rash Verified 10/26/19 19:48 rivaroxaban [From Xarelto] Allergy Swelling Verified 10/26/19 19:48 Home Medications: Home Medications Acetaminophen [Acetaminophen Extra Stren] 1,500 mg PO BID PRN 05/18/14 [History Confirmed 10/26/19] Citalopram TAB* [Celexa TAB*] 20 mg PO DAILY 05/18/14 [History Confirmed ] Gabapentin CAP(*) [Neurontin 100 mg CAP(*)] 300 mg TID 05/18/14 [History Confirmed 10/26/19] traMADol TAB* [Ultram*] 1 tab PO DAILY PRN 05/18/14 [History Confirmed 10/26/19] Atenolol 50 mg PO DAILY 08/15/14 [History Confirmed 10/26/19] Dorzolamide 2% OPTH (NF) [Trusopt 2% OPTH (NF)] 1 drop BOTH EYES BID 06/03/17 [ History Confirmed 10/26/19] Losartan TAB* [Cozaar TAB*] 25 mg PO DAILY 06/03/17 [History Confirmed 10/26/19] Atorvastatin* [Lipitor 10 MG*] 10 mg PO QPM 09/13/17 [History Confirmed 10/26/19 ] Loratadine 10 mg PO ONCE #20 cap 09/13/17 [Rx Confirmed 10/26/19] Terbinafine HCl (Topical) [Antifungal Foot] 1 % EX Q12H PRN 09/13/17 [History Confirmed 10/26/19] Albuterol HFA INHALER* [Ventolin HFA Inhaler*] 1 - 2 puff INH Q4H PRN #1 mdi [Rx] Amoxicillin/Clavulanate TAB* [Augmentin TAB 875*] 875 mg PO BID #20 tab [Rx] Bimatoprost 0.01% OPHTH (NF) [Lumigan 0.01% OPHTH (NF)] 1 drop BOTH EYES QPM [History Confirmed 10/26/19] Ergocalciferol CAP* [Drisdol CAP*] 50,000 unit PO WEEKLY 10/26/19 [History Confirmed 10/26/19] Fluticasone DISKUS 100 MCG(NF) [Flovent Diskus 100 MCG(NF)] 1 mcg BOTH NARES DAILY 10/26/19 [History Confirmed 10/26/19] Inhaler, Assist Devices [Aerochamber Mv] 1 each PO Q4HR #1 spacer 10/26/19 [Rx] Insulin Regular 500 Unit/ml [Humulin R U-500 (Concentrated) 500 units/ml 20 ml] 8 units INJ TID 10/26/19 [History Confirmed 10/26/19] Orphenadrine Citrate [Orphenadrine Citrate ER] 100 mg PO BID 10/26/19 [History Confirmed 10/26/19] PMH/Surg Hx/FS Hx/Imm Hx Previously Healthy: No - PE, DT, Endocrine History: Diabetes, Dyslipidemia Cardiovascular History: Hypertension - Surgical History Surgical History: Yes Surgery Procedure, Year, and Place: MASTOIDECTOMY RT EAR X 2 MIDDLE EAR LT X3 - Family History Known Family History: Positive: Cardiac Disease, Hypertension, Diabetes, Non- Contributory - Social History Occupation: Employed Full-time Lives: With Family Alcohol Use: Rare Substance Use Type: Excessive Caffeine Smoking Status (MU): Never Smoked Tobacco Have You Smoked in the Last Year: No - Immunization History Most Recent Influenza Vaccination: FALL 2016 Review of Systems All Other Systems Reviewed And Are Negative: Yes Constitutional: Positive: Fever, Fatigue ENT: Positive: Nasal Discharge, Sinus Congestion, Sinus Pain/Tenderness Respiratory: Positive: Shortness Of Breath, Cough Cardiovascular: Positive: Negative Gastrointestinal: Positive: Nausea Physical Exam - Summary Physical Exam Summary: Vital Signs Reviewed: Yes A+Ox3, congested, tired appearing Eyes: Conjunctiva Clear, JERO. EOM intact and full ENT: TM x 2 clear, turbinates inflammed and boggy + hearing assist devices, turbinate inflammed andn boggy, + PND, mmoist, uvula midline, no exudate, no erythema Neck: Positive: Supple Respiratory: Positive: No respiratory distress, No accessory muscle use + coarse cough, + scattered wheeze, no rhonchi Cardiovascular: RRR nl s1, s2 no m/r CBT <2 sec abd soft + BS nt/nd no guarding, no distension Musculoskeletal Exam: MARIE x 4 without difficulty Strength Intact, ROM Intact AFO brace left LE Neurological: Positive: Alert, + sensation throughout Psychological: Positive: Normal Response To label coder Skin: Positive: no rash, no ecchymosis Vital Signs: Initial Vital Signs Temp 99.0 F 10/26/19 18:19 Pulse 94 10/26/19 18:19 Resp 20 10/26/19 18:19 BP 132/63 10/26/19 18:19 Pulse Ox 97 10/26/19 18:19 Re-Evaluation - Re-Evaluation First Eval Comment: markedly imprived BS after neb. pt states feels better. will rx abx, mdi. strict return prcautions. secrtion precautions. pt comfortable and in agreement with plan Respiratory Course/Dx - Course Course Of Treatment: Pt presents to with cough, congestion, wheeze and fatigue progressive x 1 week + fever, nausea vital reviewed pt appears fatigued + scattered wheeze, cough will give neb, check flu, areassesss - Differential Dx/Diagnosis Provider Diagnosis: Acute bronchitis, Rhinosinusitis Discharge ED - Sign-Out/Discharge Documenting (check all that apply): Patient Departure All imaging exams completed and their final reports reviewed: No Studies - Discharge Plan Condition: Stable Disposition: HOME Prescriptions: Albuterol HFA INHALER* [Ventolin HFA Inhaler*] 1 - 2 puff INH Q4H PRN #1 mdi PRN Reason: wheeze Amoxicillin/Clavulanate TAB* [Augmentin TAB 875*] 875 mg PO BID #20 tab Inhaler, Assist Devices [Aerochamber Mv] 1 each PO Q4HR #1 spacer Patient Education Materials: Acute Bronchitis (ED), Rhinosinusitis (ED) Referrals: Kate Salgado PA [Primary Care Provider] - Additional Instructions: -Take antibiotics exactly as prescribed until gone -Use your albuterol puffer - 2 puffs every 4 hours for the next 2 days - then as needed -Stay well hydrated - avoid excess caffeine and all alcohol - eat regular, healthy meals - humidify the air in the room where you sleep - boil water, run a hot steam shower, vaporizer, cups of water by heat register - okay to take over the counter decongestant and cough medication -- These infections are spread by secretions - do NOT share eating or drinking utensils - clean items you share with other people such as cell phones, computer mouse, TV remote, computer tablets,etc.. Once you have been antibiotics for 2 days, change your toothbrush and your pillowcase. -Contact your doctor tomorrow to arrange a follow-up appointment next week. Call your doctor, return here or go to the emergency department with any questions or concerns - Billing Disposition and Condition Condition: STABLE Disposition: Home
[2019-10-26] MEDS ORDERED: Albuterol/Ipratropium NEB.SOL* Albuterol 2.5 MG/Ipratropium 0.5 MG 3 ML INH ONE (19:39)
== END 2019-10-26 20:13 | disposition home or self-care (01) ==
LOC: UCCORT 16:39
DX: J20.9 Acute bronchitis, unspecified (principal); J32.9 Chronic sinusitis, unspecified; R11.0 Nausea; I10 Essential (primary) hypertension; E11.9 Type 2 diabetes mellitus without complications; E78.5 Hyperlipidemia, unspecified; Z79.899 Other long term (current) drug therapy; Z79.4 Long term (current) use of insulin; Z91.040 Latex allergy status; Z88.8 Allergy status to other drugs, medicaments and biological substances
CPT/HCPCS: 99212; A9270-GY; G0463

== ENCOUNTER 2019-11-10 19:35 | Emergency (ER) | payer BC ==
[2019-11-10 20:09] VITALS: BP 125/65
[2019-11-10 20:20] LABS: Influenza A Molecular Negative (Negative); Influenza B Molecular Negative (Negative)
--- NOTE | 2019-11-10 21:11 | UC ---
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 Over the past days, he has had recurrent cough, malaise and sinus and ear pressure. Past hx of mastoiditis and recurrent ear infections, managed by Dr. Greco with debridement and drops. He stopped use of albuterol after finishing the antibiotic. he often is exposed to his client's respiratory illnesses. - History of Current Complaint Chief Complaint: UCRespiratory Stated Complaint: FLU LIKE SYMPTOMS Time Seen by Provider: 11/10/19 20:58 Hx Obtained From: Patient Onset/Duration: Gradual Onset, Lasting Days Timing: Constant Severity Initially: Moderate Severity Currently: Moderate Pain Intensity: 4 Character: Cough: Nonproductive Aggravating Factors: Exertion, Recumbent Position Alleviating Factors: Bronchodilator Associated Signs And Symptoms: Positive: Chills, URI, Nasal Congestion, Sinus Discomfort - Risk Factors Pulmonary Embolism Risk Factors: Negative Cardiac Risk Factors: Negative Pseudomonas Risk Factors: Negative Tuberculosis Risk Factors: Negative - Allergies/Home Medications Allergies/Adverse Reactions: Allergies Allergy/AdvReac Type Severity Reaction Status Date / Time latex Allergy Rash Verified 11/10/19 20:09 rivaroxaban [From Xarelto] Allergy Swelling Verified 11/10/19 20:09 Home Medications: Home Medications Citalopram TAB* [Celexa TAB*] 30 mg PO DAILY 05/18/14 [History Confirmed ] Gabapentin CAP(*) [Neurontin 100 mg CAP(*)] 300 mg PO SEE INSTRUCTIONS 05/18/14 [History Confirmed 11/10/19] traMADol TAB* [Ultram*] 1 tab PO DAILY PRN 05/18/14 [History Confirmed 11/10/19] Dorzolamide 2% OPTH (NF) [Trusopt 2% OPTH (NF)] 1 drop BOTH EYES BID 06/03/17 [ History Confirmed 11/10/19] Losartan TAB* [Cozaar TAB*] 25 mg PO DAILY 06/03/17 [History Confirmed 11/10/19] Atorvastatin* [Lipitor 10 MG*] 10 mg PO QPM 09/13/17 [History Confirmed 11/10/19 ] Terbinafine HCl (Topical) [Antifungal Foot] 1 % EX Q12H PRN 09/13/17 [History Confirmed 11/10/19] Albuterol HFA INHALER* [Ventolin HFA Inhaler*] 1 - 2 puff INH Q4H PRN #1 mdi [Rx Confirmed 11/10/19] Bimatoprost 0.01% OPHTH (NF) [Lumigan 0.01% OPHTH (NF)] 1 drop BOTH EYES BID [History Confirmed 11/10/19] Ergocalciferol CAP* [Drisdol CAP*] 50,000 unit PO SEE INSTRUCTIONS 10/26/19 [ History Confirmed 11/10/19] Fluticasone DISKUS 100 MCG(NF) [Flovent Diskus 100 MCG(NF)] 1 mcg BOTH NARES DAILY 10/26/19 [History Confirmed 11/10/19] Inhaler, Assist Devices [Aerochamber Mv] 1 each PO Q4HR #1 spacer 10/26/19 [Rx Confirmed 11/10/19] Insulin Regular 500 Unit/ml [Humulin R U-500 (Concentrated) 500 units/ml 20 ml] 8 units INJ TID 10/26/19 [History Confirmed 11/10/19] Orphenadrine Citrate [Orphenadrine Citrate ER] 100 mg PO BID 10/26/19 [History Confirmed 11/10/19] Dorzolamide Timolol Malate 1 drop BOTH EYES BID 11/10/19 [History Confirmed 02/23] Acetaminophen [Acetaminophen Extra Strength] 1,500 mg PO QPM PRN 11/10/19 [ History Confirmed 11/10/19] Amoxicillin/Clavulanate TAB* [Augmentin TAB 875*] 875 mg PO BID #14 tab [Rx] Amoxicillin/Clavulanate TAB* [Augmentin TAB 875*] 875 mg PO SEE INSTRUCTIONS 02/23 [History Confirmed 11/10/19] Atenolol TAB* [Tenormin TAB* 50 MG] 50 mg PO QPM 11/10/19 [History Confirmed 02/23] Fluticasone HFA 110 mcg(NF) [Flovent HFA 110 mcg(NF)] 2 puff INH BID #1 mdi 02/23 [Rx] Fluticasone NASAL SPRAY 50MCG* [Flonase NASAL SPRAY 50MCG*] 1 spr BOTH NARES BID 11/10/19 [History Confirmed 11/10/19] Loratadine 10 mg PO DAILY 11/10/19 [History Confirmed 11/10/19] PMH/Surg Hx/FS Hx/Imm Hx - Additional Past Medical History Additional PMH: hearing loss, hx of mastoiditis. Endocrine History: Diabetes GI/ History: Other - solitary kidney, states function is good - Surgical History Surgical History: Yes Surgery Procedure, Year, and Place: MASTOIDECTOMY RT EAR X 2 MIDDLE EAR LT X3 - Family History Known Family History: Positive: Cardiac Disease, Hypertension, Diabetes - Social History Occupation: Employed Full-time Lives: With Family Alcohol Use: Rare Substance Use Type: Excessive Caffeine Smoking Status (MU): Never Smoked Tobacco Have You Smoked in the Last Year: No - Immunization History Most Recent Influenza Vaccination: FALL 2016 Review of Systems All Other Systems Reviewed And Are Negative: Yes Constitutional: Positive: Fatigue Skin: Positive: Negative Eyes: Positive: Negative ENT: Positive: Ear Ache, Sinus Congestion Respiratory: Positive: Shortness Of Breath, Cough Cardiovascular: Negative: Palpitations, Chest Pain Genitourinary: Positive: Negative Motor: Positive: Other - 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 Vital Signs: Initial Vital Signs Temp 98.3 F 11/10/19 19:58 Pulse 74 11/10/19 19:58 Resp 20 11/10/19 19:58 BP 125/65 11/10/19 19:58 Pulse Ox 98 11/10/19 19:58 Eye Exam: Normal ENT: Positive: Pharyngeal erythema, TM dull - right ear opaque and dull, left TM scarring. Dental Exam: Normal Neck: Positive: Supple Respiratory: Positive: No respiratory distress, No accessory muscle use, Decreased breath sounds, Wheezing - occasional Cardiovascular: Positive: RRR, No Murmur Musculoskeletal Exam: Other - left foot brace Neurological Exam: Normal Psychological Exam: Normal Respiratory Course/Dx - Course Course Of Treatment: Given hx of recurrent sinusitis, suggested extension of treatment with augmentin. Avoid oral steroids as his diabetes control is not all that great even tiwht pump (last a1c >10) Will send in rx for flovent inhaler --advised might not be covered by insurance. Will need follow up with PMD to optimize meds. - Differential Dx/Diagnosis Differential Diagnosis/HQI/PQRI: Asthma, Bronchitis, Influenza, Laryngitis, Lower Resp Infection, Sinusitis Provider Diagnosis: Sinusitis Discharge ED - Sign-Out/Discharge Documenting (check all that apply): Patient Departure All imaging exams completed and their final reports reviewed: No Studies - Discharge Plan Condition: Stable Disposition: HOME Prescriptions: Amoxicillin/Clavulanate TAB* [Augmentin TAB 875*] 875 mg PO BID #14 tab Fluticasone HFA 110 mcg(NF) [Flovent HFA 110 mcg(NF)] 2 puff INH BID #1 mdi Patient Education Materials: Sinusitis (ED) Referrals: Kate Salgado PA [Primary Care Provider] - Additional Instructions: I suggest extending the course of augmentin to treat underlying sinusitis. Steroid inhaler (Flovent) has been sent to your pharmacy. use 2 sprays twice daily, but ensure that you rinse your mouth after use. Continue use of albuterol up to 4 times per day. If the Flovent is not covered by your insurance, please check with your primary are doctor with regard to choosing a steroid inhaler given your recurrent wheezing and persistent cough. An inhaled steroid would be preferred to decrease the risks associated with an oral steroid. I suggest a follow up with Kate Salgado next week to review your meds and optimize treatment to control your cough and wheeze. - Billing Disposition and Condition Condition: STABLE Disposition: Home
[2019-11-10] MEDS ORDERED: Amoxicillin/Clavulanate TAB* 875 MG PO ONE (21:24)
== END 2019-11-10 21:37 | disposition home or self-care (01) ==
LOC: UCCORT 19:35
DX: J32.9 Chronic sinusitis, unspecified (principal); M25.50 Pain in unspecified joint; E11.9 Type 2 diabetes mellitus without complications; Z88.8 Allergy status to other drugs, medicaments and biological substances; Z79.4 Long term (current) use of insulin; Z91.040 Latex allergy status
CPT/HCPCS: 99212; A9270-GY; G0463